=== PATIENT | female | born 1970 | race Caucasian/White ===

== ENCOUNTER → 2017-03-21 | Emergency (ER) | payer OTHER ==
[~2017-03-21] VITALS: Ht 157.5 cm; Wt 72.6 kg
[~2017-03-21] MED LIST: CLARINEX-D 11 BOTTLE PO; LEVAQUIN750 MG PO; LEVOTHROID25 MCG PO; NASONEX17 GM NS; NORFLEX100 MG PO; OSCAL D PO; OSEL75CA PO; PROZAC20 MG PO; TENCON CAPSULE1 CAP PO; TRAM1TAB98 PO; TUSSIONEX PENNKI5 ML PO; VITAMIN D1000 UNI1 PO; ZITHROMAX500 MG PO
== END | disposition home or self-care (01) ==
LOC: ER 05:58
DX: J40 Bronchitis, not specified as acute or chronic (principal)